=== PATIENT | female | born 1965 | race Caucasian/White ===

== ENCOUNTER 2017-02-05 22:19 | Emergency (ER) | payer OTHER ==
[~2017-02-05 22:19] MED LIST: ALBUTEROL17 GM INH; ATORVASTATIN CA80 MG PO; CLEOCIN PO; ESOMEPRAZOLE MA40 MG; FLEXERIL10 MG PO; IBUPROFEN600 MG PO; NEURONTIN600 MG DOB; PROPRANOLOL HCL40 MG PO; QUETIAPINE FUM100 MG PO; SERTRALINE HCL100 MG PO
[2017-02-05 22:53] LABS: URINE SOURCE CLEAN CATCH
[2017-02-05 22:55] LABS: MICRO INDICATED? NO; URINE APPEARANCE HAZY; URINE BILIRUBIN NEG (NEG); URINE BLOOD NEG (NEG); URINE COLOR YELLOW; URINE GLUCOSE NEG (NORM); URINE KETONE NEG (NEG); URINE LEUKOCYTE ESTERASE NEG (NEG); URINE NITRATE NEG (NEG); URINE PROTEIN TRACE (NEG); URINE SPECIFIC GRAVITY 1.025 (1.003-1.035); URINE UROBILINOGEN 0.2 MG/DL (NORM)
[2017-02-05 23:01] LABS: BASOPHIL% 0.1 % (0-2.5); EOSINOPHIL# 0.3 X10e3 (0-0.7); EOSINOPHIL% 2.8 % (0.0-7.0); HEMOGLOBIN 15.3 gm/dL (12.0-16.0); LYMPHOCYTE# 2.1 X10e3 (1.0-3.5); LYMPHOCYTE% 18.6 % (17.0-45.0); MEAN CELL VOLUME 90.3 FL (83-96); MEAN CORPUSCULAR HEMOGLOBIN 30.7 PG (28-34); MEAN PLATELET VOLUME 8.2 FL (6.5-11.5); MONOCYTE# 0.8 X10e3 (0-1.0); MONOCYTE% 6.6 % (3.0-12.0); NEUTROPHIL# 8.2 X10e3 (1.5-7.1); NEUTROPHIL% 71.9 % (40-75); PLATELET COUNT 248 X10e3 (140-420); RED BLOOD COUNT 4.99 X10e (3.90-5.30); RED CELL DISTRIBUTION WIDTH 13.4 % (11.0-15.5); WHITE BLOOD COUNT 11.5 X10e3 (4.0-10.5)
[2017-02-05 23:07] LABS: DIFF IND NO
[2017-02-05 23:09] LABS: ALBUMIN SERUM 4.5 g/dL (3.5-5.0); BILIRUBIN, DIRECT 0.1 mg/dL (0.0-0.2); BILIRUBIN,INDIRECT 0.7 mg/dL (0.0-0.9); BILIRUBIN,TOTAL 0.8 mg/dL (0.2-2.0); BUN/CREATININE RATIO 11.11; CALCIUM SERUM 9.2 mg/dL (8.4-10.2); CREATININE SERUM 0.9 mg/dL (0.6-1.4); GLOM FILT RATE Estimated 74.6 mL/min (>60); POTASSIUM 3.7 mmol/L (3.5-5.1); PROTEIN TOTAL SERUM 8.2 g/dL (6.0-8.3)
[2017-04-20] MEDS ORDERED: VALTREX PO (16:24)
[2017-04-20] MEDS ORDERED: ZOVIRAX200 M1 PO (17:55)
== END 2017-02-06 00:12 | disposition home or self-care (01) ==
LOC: SED 22:19
PROVIDERS: Nurse Practitioner
DX: R11.2 Nausea with vomiting, unspecified (principal); R51 Headache; F41.9 Anxiety disorder, unspecified; K21.9 Gastro-esophageal reflux disease without esophagitis; E78.5 Hyperlipidemia, unspecified; J45.909 Unspecified asthma, uncomplicated; F32.9 Major depressive disorder, single episode, unspecified; Z90.49 Acquired absence of other specified parts of digestive tract; Z88.0 Allergy status to penicillin; F17.210 Nicotine dependence, cigarettes, uncomplicated
CPT/HCPCS: 36415; 80048; 80076; 81003; 83690; 85025; 96361; 96374; 96375; 99284; J1885; J2405

== ENCOUNTER 2017-04-03 20:23 | Emergency (ER) | payer OTHER ==
[2017-04-03] MEDS ORDERED: ATORVASTATIN CA80 MG PO (20:41)
[2017-04-03] MEDS ORDERED: MIRTAZAPINE30 MG PO (20:42)
[2017-04-03] MEDS ORDERED: ALBUTEROL17 GM INH (20:42)
[2017-04-03] MEDS ORDERED: ZANTAC150 M1 PO (20:43)
[2017-04-03] MEDS ORDERED: MIRTAZAPINE7.5 MG PO (20:43)
[2017-04-03] MEDS ORDERED: INDERAL60 MG PO (20:44)
[2017-04-03] MEDS ORDERED: QUETIAPINE FUM100 MG PO (20:45)
[2017-04-03] MEDS ORDERED: FLEXERIL10 MG PO (20:45)
[2017-04-03] MEDS ORDERED: ROPINIROLE HCL1 MG PO (20:45)
[2017-04-03] MEDS ORDERED: NEURONTIN800 MG PO (20:46)
[2017-04-20] MEDS ORDERED: VALTREX PO (16:24)
[2017-04-20] MEDS ORDERED: ZOVIRAX200 M1 PO (17:55)
== END 2017-04-03 21:27 | disposition home or self-care (01) ==
LOC: SED 20:23
DX: L03.011 Cellulitis of right finger (principal); F17.200 Nicotine dependence, unspecified, uncomplicated; F41.9 Anxiety disorder, unspecified; F32.9 Major depressive disorder, single episode, unspecified; Z88.0 Allergy status to penicillin; Z86.14 Personal history of Methicillin resistant Staphylococcus aureus infection; X58.XXXA Exposure to other specified factors, initial encounter; Y92.009 Unspecified place in unspecified non-institutional (private) residence as the place of occurrence of the external cause
CPT/HCPCS: 99283

== ENCOUNTER 2017-04-17 08:21 | Emergency (ER) | payer OTHER ==
[~2017-04-17 08:21] MED LIST changes: +INDERAL60 MG PO; +MIRTAZAPINE30 MG PO; +MIRTAZAPINE7.5 MG PO; +NEURONTIN800 MG PO; +ROPINIROLE HCL1 MG PO; +ZANTAC150 M1 PO
[2017-04-17 09:28] LABS: URINE SOURCE CLEAN CATCH
[2017-04-17 09:30] LABS: URINE APPEARANCE CLEAR; URINE BILIRUBIN NEG (NEG); URINE BLOOD TRACE-INTACT (NEG); URINE COLOR YELLOW; URINE GLUCOSE 300 MG/DL (NORM); URINE KETONE NEG (NEG); URINE LEUKOCYTE ESTERASE NEG (NEG); URINE NITRATE NEG (NEG); URINE PROTEIN NEG (NEG); URINE UROBILINOGEN 0.2 MG/DL (NORM)
[2017-04-17 09:44] LABS: MICRO INDICATED? YES
[2017-04-17 09:49] LABS: CULTURE INDICATED? NO; URINE BACTERIA NEG (NEG); URINE WBC 0-2 /[HPF] (0-5)
[2017-04-19 00:31] LABS: CHLAMYDIA TRACH Not Detected (Not Detected); N GONOR Not Detected (Not Detected)
[2017-04-20] MEDS ORDERED: VALTREX PO (16:24)
[2017-04-20] MEDS ORDERED: ZOVIRAX200 M1 PO (17:55)
== END 2017-04-17 10:58 | disposition home or self-care (01) ==
LOC: SED 08:21
PROVIDERS: Emergency Medicine
DX: N72 Inflammatory disease of cervix uteri (principal); B37.3 Candidiasis of vulva and vagina; R35.0 Frequency of micturition; F41.9 Anxiety disorder, unspecified; F32.9 Major depressive disorder, single episode, unspecified; K21.9 Gastro-esophageal reflux disease without esophagitis; F31.9 Bipolar disorder, unspecified; F17.210 Nicotine dependence, cigarettes, uncomplicated; Z86.14 Personal history of Methicillin resistant Staphylococcus aureus infection; Z90.49 Acquired absence of other specified parts of digestive tract; Z88.0 Allergy status to penicillin
CPT/HCPCS: 81003; 84703; 87253; 87491; 87591; 87808; 87905; 96372; 99283; J1885

== ENCOUNTER → 2017-05-11 | Outpatient (CLI) | payer OTHER ==
[~2017-05-11] MED LIST changes: +VALTREX PO; +ZOVIRAX200 M1 PO
--- NOTE | ~2017-05-11 | CT2 ---
[facility] A Service of [facility] [place] RADIOLOGY TEXT RESULTS PATIENT: CESAR CHAN LOCATION: [facility] : 67 UNIT #: [id number] AGE: [address]: Arnaldo Mosquera MD SEX: F ORDER DR: [id number] [facility] [address] [place], [place] [address] [id number] O MR#: [id number] Acc #: [id number] NAME: CESAR CHAN : 1965 SEX: F STUDY DATE/TIME: 05/11/2017 11:29 UNIT: [facility] ROOM: STUDY DESCRIPTION: CT Abd and Pelv W Cont Attending Physician: Arnaldo Mosquera M.D. Referring Physician: Arnaldo Mosquera M.D. Ordering Physician: Arnaldo Mosquera M.D. MEDICAL IMAGING REPORT This report is preliminary unless electronic signature is present EXAM Abdomen and pelvis CT with contrast 05/11/2017 INDICATIONS 51-year-old female with abdominal pain, left-sided, 2-3 years. History of appendectomy. TECHNIQUE Contrast enhanced CT of the abdomen and pelvis was performed. This CT exam was performed with one or more of the following radiation dose reduction techniques: automatic exposure control, adjustment of mA and/or kV according to patient size, and iterative reconstruction. COMPARISON STUDIES We have no comparisons. FINDINGS Included lung bases clear. Aorta demonstrates no aneurysm or dissection. Spleen, adrenal glands and pancreas are unremarkable. The gallbladder contracted. There is moderate fatty infiltration of the liver. Kidneys demonstrate non-obstructing stones bilaterally. No hydronephrosis. Incidental exophytic cyst arising from the lateral mid-pole right kidney. Stomach incompletely distended, probably accounting for wall thickening rather than gastritis. CT PELVIS: Apparent prolapse of the bladder into the pelvis. There are vascular calcifications in the pelvis. No drainable fluid collection or adnexal mass. Appendix surgically absent. Inguinal canals are unremarkable. No suspicious bone lesion. IMPRESSION [facility] A Service of [facility] [place] RADIOLOGY TEXT RESULTS PATIENT: CESAR CHAN LOCATION: [facility] : [birth year] UNIT #: [id number] AGE: [address]: Arnaldo Mosquera MD SEX: F ORDER DR: 1. No clearly acute process in the abdomen or pelvis. The appendix is surgically absent. No bowel obstruction or drainable fluid collection. 2. Non-obstructing renal stones and incidental right renal cyst. 3. Fatty infiltration of the liver. Dictated by... Darío Vega M.D. THIS IS AN ELECTRONICALLY VERIFIED REPORT Darío Vega M.D. at 05/14/2017 7:24 AM SHRUTHI/javi TD: 05/11/2017 23:05 JOB #: [id number] MEDICAL IMAGING REPORT Page 1 of 1 COPY
[2017-05-11 10:31] LABS: HEMATOCRIT 42.2 % (35.0-45.0); MEAN CORPUSCULAR HEMOGLOBIN 31.3 PG (28-34); MEAN CORPUSCULAR HGB CONC 35.5 g/dL (30-36); MEAN PLATELET VOLUME 8.6 FL (6.5-11.5); RED BLOOD COUNT 4.79 X10e (3.90-5.30); RED CELL DISTRIBUTION WIDTH 12.4 % (11.0-15.5); WHITE BLOOD COUNT 7.1 X10e3 (4.0-10.5)
[2017-05-11 11:10] LABS: ALBUMIN SERUM 4.1 g/dL (3.5-5.0); BUN/CREATININE RATIO 8.88; CREATININE SERUM 0.9 mg/dL (0.6-1.4); GLOM FILT RATE Estimated 74.6 mL/min (>60); POTASSIUM 3.5 mmol/L (3.5-5.1); PROTEIN TOTAL SERUM 7.1 g/dL (6.0-8.3)
== END | disposition home or self-care (01) ==
LOC: CCAT 10:02
PROVIDERS: Internal Medicine
DX: R10.12 Left upper quadrant pain (principal); N20.0 Calculus of kidney; K76.0 Fatty (change of) liver, not elsewhere classified; Z90.49 Acquired absence of other specified parts of digestive tract
CPT/HCPCS: 36415; 74177; 80053; 82150; 83690; 85027; Q9967